=== PATIENT | male | born 2005 | race African-American/Black ===

== ENCOUNTER 2025-08-08 09:46 | Emergency (ER) | payer MEDICAID ==
[~2025-08-08] VITALS: Ht 180.3 cm; Wt 75.0 kg
[2025-08-08 10:10] VITALS: TEMP 36.8; O2SAT 100
[2025-08-08] MEDS: ACETAMINOPHEN 325MG TABLET PO ONE (10:45)
[2025-08-08] MEDS ORDERED: LIDO-53 TP (11:55)
[2025-08-08] MEDS ORDERED: IBUP-1455 MT (11:55)
[2025-08-08] MEDS: KETOROLAC 30MG/ML VIAL IM ONE (12:15)
[2025-08-08 12:31] VITALS: BP 119/76; PULSE 61; RESP 16; O2SAT 100
[2025-08-08] MEDS: LIDOCAINE 5% PATCH TOP SCH (12:31)
== END 2025-08-08 12:35 | disposition home or self-care (01) ==
LOC: ER 09:46
DX: M54.50 Low back pain, unspecified (principal); J45.909 Unspecified asthma, uncomplicated; R51.9 Headache, unspecified
CPT/HCPCS: 74176; 99284